=== PATIENT | female | born 1945 | race Caucasian/White ===

== ENCOUNTER 2017-10-06 21:09 | Emergency (ER) | payer OTHER, BC ==
[~2017-10-06] VITALS: Ht 152.4 cm; Wt 88.9 kg
[2017-10-06 21:30] VITALS: Ht 152.4 cm; Wt 88.9 kg
[2017-10-07 02:12] VITALS: BP 147/78
== END 2017-10-07 02:12 | disposition home or self-care (01) ==
LOC: ED 21:09
DX: S61.211A Laceration without foreign body of left index finger without damage to nail, initial encounter (principal); S61.213A Laceration without foreign body of left middle finger without damage to nail, initial encounter; E11.9 Type 2 diabetes mellitus without complications; E78.5 Hyperlipidemia, unspecified; Z88.0 Allergy status to penicillin; Z88.6 Allergy status to analgesic agent; W54.0XXA Bitten by dog, initial encounter; Y93.89 Activity, other specified; Y92.89 Other specified places as the place of occurrence of the external cause; Y99.8 Other external cause status
CPT/HCPCS: J2001